=== PATIENT | female | born 1985 | race African-American/Black ===

== ENCOUNTER 2017-08-19 19:49 | Emergency (ER) | payer SELFPAY ==
[~2017-08-19] VITALS: Ht 157.5 cm; Wt 118.0 kg
[~2017-08-19 19:49] MED LIST: HYDR-3927
[2017-08-19 21:46] VITALS: BP 128/80
== END 2017-08-20 01:23 | disposition home or self-care (01) ==
LOC: ER 19:49
DX: L03.113 Cellulitis of right upper limb (principal); F41.9 Anxiety disorder, unspecified; F32.9 Major depressive disorder, single episode, unspecified
CPT/HCPCS: 81025; 99283